=== PATIENT | male | born 1985 | race Caucasian/White ===

== ENCOUNTER 2017-07-14 23:58 | Emergency (ER) | payer OTHER ==
[~2017-07-14] VITALS: Ht 185.4 cm; Wt 80.0 kg
[~2017-07-14 23:58] MED LIST: ALPR2TAB3 PO
[2017-07-15 00:01] VITALS: BP 135/85; PULSE 124; RESP 18; TEMP 98.7; O2SAT 96
[2017-07-15] MEDS ORDERED: SODIUM CHLOR 0.9% 1000 ML INJ 1,000 ML IV ONE (00:15)
--- NOTE | 2017-07-15 00:34 | PD ---
HPI Chief Complaint: OD/ Ingestion Time Seen by Provider: 00:08 Travel History International Travel<30 days: No Contact w/Intl Traveler<30days: No Traveled to known affect area: No History of Present Illness HPI 32yo M with no significant PMH presents to the ED via [facility] for overdose. Pt was found on his friends couch with low respiratory rate and given narcan 0.4mg IV at around 11:40pm. He woke up right away and was breathing normally. Pt admits to injecting possibly heroin in right AC from his friend. Said he has tried it a few times but does not do it regularly. Denies any fever, chest pain , sob, n/v, abdominal pain, focal weakness or numbness. Pt is tachycardic in the 120s. PFSH Past Medical History Anxiety: Yes Diminished Hearing: No Musculoskeletal: Yes (VERTEBRAL FRACTURES FROM LAST SEIZURE) Seizures: Yes Tetanus Vaccination: > 5 Years Influenza Vaccination: No Past Surgical History Surgical History: No Previous Surgery Social History Alcohol Use: Yes (1 week) Tobacco Use: No Substance Use: Yes (IVDA, Marijuana) Allergies-Medications (Allergen,Severity, Reaction): Coded Allergies: No Known Allergies (Verified Adverse Reaction, Unknown, 07/12/17) Reported Meds & Prescriptions Reported Meds & Active Scripts Active Alprazolam 2 Mg Tab 2 Mg PO BID PRN Review of Systems Except as stated in HPI: all other systems reviewed are Neg Physical Exam Narrative GENERAL: 32yo M not in distress. SKIN: Focused skin assessment warm/dry. HEAD: Atraumatic. Normocephalic. EYES: Pupils equal and round. No scleral icterus. No injection or drainage. ENT: No nasal bleeding or discharge. Mucous membranes pink and moist. NECK: Trachea midline. No JVD. CARDIOVASCULAR: Tachycardic in the 120s. No murmur appreciated. RESPIRATORY: No accessory muscle use. Clear to auscultation. Breath sounds equal bilaterally. GASTROINTESTINAL: Abdomen soft, non-tender, nondistended. MUSCULOSKELETAL: No obvious deformities. No clubbing. No cyanosis. No edema. NEUROLOGICAL: Awake and alert. No obvious cranial nerve deficits. Motor grossly within normal limits. Normal speech. PSYCHIATRIC: Appropriate mood and affect; insight and judgment normal. Data Data Last Documented VS Vital Signs Date Time Temp Pulse Resp B/P (MAP) Pulse Ox O2 Delivery O2 Flow Rate FiO2 07/15/17 03:26 07/15/17 02:56 96 16 98 Room Air 07/15/17 00:01 98.7 Orders Orders Sodium Chlor 0.9% 1000 Ml Inj (Ns 1000 M (07/15/17 00:15) Electrocardiogram (07/15/17 ) Basic Metabolic Panel (Bmp) (07/15/17 00:34) Complete Blood Count With Diff (07/15/17 00:34) Alcohol (Ethanol) (07/15/17 00:34) Ed Discharge Order (07/15/17 03:12) Labs Laboratory Tests Test 07/15/17 01:10 White Blood Count 7.8 TH/MM3 Red Blood Count 4.17 MIL/MM3 Hemoglobin 13.5 GM/DL Hematocrit 38.6 % Mean Corpuscular Volume 92.5 FL Mean Corpuscular Hemoglobin 32.3 PG Mean Corpuscular Hemoglobin Concent 34.9 % Red Cell Distribution Width 12.4 % Platelet Count 207 TH/MM3 Mean Platelet Volume 7.9 FL Neutrophils (%) (Auto) 86.2 % Lymphocytes (%) (Auto) 9.2 % Monocytes (%) (Auto) 4.4 % Eosinophils (%) (Auto) 0.0 % Basophils (%) (Auto) 0.2 % Neutrophils # (Auto) 6.7 TH/MM3 Lymphocytes # (Auto) 0.7 TH/MM3 Monocytes # (Auto) 0.3 TH/MM3 Eosinophils # (Auto) 0.0 TH/MM3 Basophils # (Auto) 0.0 TH/MM3 CBC Comment DIFF FINAL Differential Comment Blood Urea Nitrogen 11 MG/DL Creatinine 0.85 MG/DL Random Glucose 106 MG/DL Calcium Level 7.7 MG/DL Sodium Level 145 MEQ/L Potassium Level 4.5 MEQ/L Chloride Level 113 MEQ/L Carbon Dioxide Level 26.9 MEQ/L Anion Gap 5 MEQ/L Estimat Glomerular Filtration Rate 103 ML/MIN Ethyl Alcohol Level 116 MG/DL [facility] Medical Decision Making Medical Screen Exam Complete: Yes Emergency Medical Condition: Yes Interpretation(s) EKG: Sinus tachycardia at 121bpm. Normal axis. No ST segment elevation or depression. Differential Diagnosis Drug abuse vs. sympathomimetic vs. dehydration vs. electrolyte abnormality Narrative Course 32yo M brought in by [facility] after overdose on heroin. Pt was given narcan by [facility]. Denies any complaints. Pt is AAOx3. Labs reviewed, no leukocytosis. Alcohol 116. Pt given NS IVF and now HR is 99bpm. Pt has been observed in the ED for 3 hours and has not needed another dose of narcan. His father is here to accompany him home. Pt requesting xanax for his anxiety which I said he will not get because he came in for opioid overdose. He said he has it at home. Return precautions given. Pt denies any suicidal or homicidal ideations. Diagnosis Primary Impression: Opioid overdose Qualified Codes: T40.2X1A - Poisoning by other opioids, accidental ( unintentional), initial encounter Patient Instructions: General Instructions Departure Forms: Tests/Procedures Additional Instructions: Please follow up with your primary care physician in 3-7 days. Return to the ED if symptoms worsen. Med/Other Pt SpecificInfo: No Change to Meds Disposition: 01 DISCHARGE HOME Condition: Stable SchroederChrissy méndez Jul 15, 2017 00:34
[2017-07-15 01:35] LABS: AUTOMATED NEUTROPHIL # 6.7 TH/MM3 (1.8-7.7); BASOPHIL % 0.2 % (0.0-2.0); HEMATOCRIT 38.6 % (39.0-51.0); HEMOGLOBIN 13.5 GM/DL (13.0-17.0); LYMPH % 9.2 % (9.0-44.0); LYMPHOCYTE # 0.7 TH/MM3 (1.0-4.8); MEAN CELL VOLUME 92.5 FL (80.0-100.0); MEAN CORPUSCULAR HEMOGLOBIN 32.3 PG (27.0-34.0); MEAN CORPUSCULAR HGB CONC 34.9 % (32.0-36.0); MEAN PLATELET VOLUME 7.9 FL (7.0-11.0); MONO % 4.4 % (0.0-8.0); MONOCYTE # 0.3 TH/MM3 (0-0.9); NEUT % 86.2 % (16.0-70.0); PLATELET COUNT 207 TH/MM3 (150-450); RED BLOOD COUNT 4.17 MIL/MM3 (4.50-5.90); RED CELL DISTRIBUTION WIDTH 12.4 % (11.6-17.2); WHITE BLOOD COUNT 7.8 TH/MM3 (4.0-11.0)
[2017-07-15 01:56] LABS: BICARBONATE 26.9 MEQ/L (21.0-32.0); CALCIUM 7.7 MG/DL (8.5-10.1); CREATININE 0.85 MG/DL (0.60-1.30)
[2017-07-15 02:56] VITALS: BP 107/65; PULSE 96; RESP 16; O2SAT 98
--- NOTE | 2017-07-15 08:04 | EKG ---
Date Performed: 07/15/2017 Time Performed: 00:39:21 PTAGE: 32 years EKG: SINUS TACHYCARDIA ABNORMAL RHYTHM ECG No significant change from prior electrocardiogram. PREVIOUS TRACING : 07/01/2010 08.10 DOCTOR: Orville Valiente Interpretating Date/Time 07/15/2017 08:04:08
== END 2017-07-15 03:31 | disposition home or self-care (01) ==
LOC: NEPC 23:58
DX: T40.1X1A Poisoning by heroin, accidental (unintentional), initial encounter (principal); F41.9 Anxiety disorder, unspecified; R56.9 Unspecified convulsions; F12.90 Cannabis use, unspecified, uncomplicated; R00.0 Tachycardia, unspecified; Y92.009 Unspecified place in unspecified non-institutional (private) residence as the place of occurrence of the external cause
CPT/HCPCS: 80048; 80307; 85025; 93005; 96360; 96361; 99284; J7030